=== PATIENT | female | born 1945 | race Hispanic/Latino ===

== ENCOUNTER → 2017-12-26 | Outpatient (CLI) | payer OTHER | END | disposition home or self-care (01) | LOC: OIH 16:08 | PROVIDERS: ATTEND Family Medicine | DX: M47.896 Other spondylosis, lumbar region (principal); S33.140A Subluxation of L4/L5 lumbar vertebra, initial encounter; M48.07 Spinal stenosis, lumbosacral region; X58.XXXA Exposure to other specified factors, initial encounter; Y93.89 Activity, other specified; Y92.89 Other specified places as the place of occurrence of the external cause; Y99.8 Other external cause status | CPT/HCPCS: 72100 ==

== ENCOUNTER → 2018-05-02 | Outpatient (CLI) | payer OTHER | END | disposition home or self-care (01) | LOC: RAH 12:44 | PROVIDERS: ATTEND Family Medicine | DX: M48.062 Spinal stenosis, lumbar region with neurogenic claudication (principal); M54.16 Radiculopathy, lumbar region | CPT/HCPCS: 72148 ==

== ENCOUNTER → 2018-10-23 | Outpatient (CLI) | payer OTHER | END | disposition home or self-care (01) | LOC: RAH 13:12 | PROVIDERS: ATTEND Family Medicine | DX: Z12.31 Encounter for screening mammogram for malignant neoplasm of breast (principal) | CPT/HCPCS: 77067 ==

== ENCOUNTER → 2021-09-28 | Outpatient (CLI) | payer OTHER | END | disposition home or self-care (01) | LOC: RAH 15:47 | PROVIDERS: ATTEND Family Medicine | DX: Z12.31 Encounter for screening mammogram for malignant neoplasm of breast (principal) | CPT/HCPCS: 77067 ==

== ENCOUNTER 2023-07-15 05:20 | Observation (INO) | payer OTHER ==
[~2023-07-15] VITALS: Ht 160 cm; Wt 84.9 kg
[2023-07-15 05:37] LABS: BASOPHILS # (AUTO) 0.02 K/uL (0.00-0.20); BASOPHILS % (AUTO) 0.3 % (0.0-5.0); EOSINOPHILS # (AUTO) 0.29 K/uL (0.00-0.70); EOSINOPHILS % (AUTO) 4.8 % (0.0-8.0); HEMATOCRIT 40.8 % (36-48); IMMATURE GRANULOCYTE ABSOLUTE 0.02 K/uL (0-1); LYMPHOCYTES # (AUTO) 1.3 K/uL (1.0-4.8); LYMPHOCYTES % (AUTO) 21.5 % (21.0-51.0); MEAN CORPUSCULAR HEMOGLOBIN 29.3 pg (27.0-33.0); MEAN CORPUSCULAR HGB CONC 33.1 g/dL (32.0-36.0); MEAN CORPUSCULAR VOLUME 88.7 fL (79-99); MONOCYTES # (AUTO) 0.5 K/uL (0.1-1.0); NEUTROPHILS # (AUTO) 3.9 K/uL (1.8-7.7); NEUTROPHILS % (AUTO) 65.1 % (40.0-77.0); PLATELET COUNT (AUTO) 246 K/uL (130-400)
[2023-07-15 06:01] LABS: ALBUMIN 3.4 g/dL (3.5-5.0); BILIRUBIN,TOTAL 0.4 mg/dL (0.2-1.0); CREATININE 0.8 mg/dL (0.5-1.0); POTASSIUM 3.5 mmol/L (3.5-5.1); TOTAL PROTEIN, SERUM 6.8 g/dL (6.0-8.3)
[2023-07-15 06:11] LABS: INR <= 0.93 (0.85-1.15); PROTHROMBIN TIME 10.8 SEC (9.6-11.6)
[2023-07-15 06:12] LABS: PARTIAL THROMBOPLASTIN TIME 27.4 SEC (26.3-35.5)
[2023-07-15 06:34] LABS: B-TYPE NATRIURETIC PEPTIDE 13 pg/mL (0-100)
[2023-07-15] MEDS: ENOXAPARIN SODIUM 40 MG/0.4 ML SYRINGE SQ ONE (07:27)
[2023-07-15] MEDS: NITROGLYCERIN 1GM OINT 1 INCH/1GM TD ONE (07:28)
[2023-07-15 09:21] LABS: APPEARANCE,URINE CLEAR (CLEAR); BILIRUBIN,URINE NEGATIVE (NEGATIVE); GLUCOSE, URINE (UA) NEGATIVE (NEGATIVE); KETONES,URINE NEGATIVE (NEGATIVE); LEUKOCYTE ESTERASE ,URINE NEGATIVE Leu/uL (NEGATIVE); NITRATE,URINE NEGATIVE (NEGATIVE); OCCULT BLOOD,URINE NEGATIVE (NEGATIVE); PROTEIN,URINE NEGATIVE (NEGATIVE); UROBILINOGEN,URINE 0.2 mg/dL (0.2-1.0)
[2023-07-15 09:23] LABS: ADD UA MICROSCOPIC NO; COLOR,URINE STRAW (YELLOW)
[2023-07-15] MEDS ORDERED: ALUM PO PRN (10:30)
[2023-07-15] MEDS ORDERED: BENZOCAINE/MENTH/CETYLPYRD CL 1 EACH LOZENGE MM PRN (10:30)
[2023-07-15] MEDS ORDERED: DOCUSATE SODIUM 100 MG CAP PO PRN (10:30)
[2023-07-15] MEDS ORDERED: ALPRAZOLAM 0.5 MG TABLET PO PRN (10:30)
[2023-07-15] MEDS ORDERED: DICYCLOMINE HCL PO PRN (10:30)
[2023-07-15] MEDS ORDERED: GUAIFENESIN SUGAR-FREE 100 MG/5 ML UDCUP PO PRN (10:30)
[2023-07-15] MEDS ORDERED: LACTULOSE 20 GM/30 ML UDCUP PO PRN (10:30)
[2023-07-15] MEDS ORDERED: LIDOCAINE HCL 2% PO PRN (10:30)
[2023-07-15] MEDS ORDERED: DIPHENHYDRAMINE HCL 25 MG CAPSULE PO PRN (10:30)
[2023-07-15] MEDS ORDERED: MAG PO PRN (10:30)
[2023-07-15] MEDS ORDERED: ACETAMINOPHEN 325 MG TAB PO PRN ×2 (10:30)
[2023-07-15] MEDS ORDERED: VISCOUS PO PRN (10:30)
[2023-07-15] MEDS ORDERED: SIMETH PO PRN (10:30)
[2023-07-15] MEDS ORDERED: ARTIFICAL TEARS SOL 15 ML OP PRN (10:30)
[2023-07-15] MEDS ORDERED: ONDANSETRON 4MG INJ IV PRN (10:30)
[2023-07-15] MEDS ORDERED: ACETAMINOPHEN 500 MG TABLET PO PRN (10:30)
[2023-07-15] MEDS ORDERED: LOPERAMIDE HCL 2 MG CAP PO PRN (10:30)
[2023-07-15] MEDS ORDERED: ZOLPIDEM TARTRATE 5 MG TAB PO PRN (10:30)
[2023-07-15] MEDS ORDERED: POLYETHYLENE GLYCOL 3350 17 GM POWD.PACK PO PRN (10:30)
[2023-07-15] MEDS ORDERED: DiphenhydrAMINE HCL 50 MG/ML VIAL IV PRN (10:30)
[2023-07-15] MEDS ORDERED: GUAIFENESIN-DM 200/20 MG 10 ML PO PRN (10:30)
[2023-07-15] MEDS ORDERED: NITROGLYCERIN 0.4 MG SL TAB SL PRN (10:30)
[2023-07-15] MEDS ORDERED: MAG/ALUM/SIMETH 30 ML UDCUP PO PRN (10:30)
[2023-07-15 12:00] VITALS: O2SAT 98
[2023-07-15 12:15] VITALS: BP 126/57; PULSE 58; RESP 18
[2023-07-15 16:00] VITALS: BP 140/74; PULSE 61; RESP 18
[2023-07-15] MEDS ORDERED: LOSA100T59 PO (17:12)
[2023-07-15] MEDS ORDERED: METF-446 PO (17:12)
[2023-07-15] MEDS ORDERED: AMLO-257 PO (17:36)
[2023-07-15 20:00] VITALS: BP 143/71; PULSE 69; RESP 19; O2SAT 96
[2023-07-15] MEDS: FAMOTIDINE 20MG TAB PO SCH (20:05)
[2023-07-15] MEDS: ATORVASTATIN 40 MG TABLET PO SCH (20:05)
[2023-07-15] MEDS ORDERED: FAMOTIDINE 20MG VIAL IV PRN (21:00)
[2023-07-15] MEDS: INSULIN HUMULIN R 100 UNIT/ML 3ML SQ SCH (22:33)
[2023-07-15] MEDS ORDERED: HYDRALAZINE 20MG/ML VIAL IV PRN (23:30)
[2023-07-16] VITALS: BP 149/76; PULSE 65; RESP 19
[2023-07-16 04:00] VITALS: BP 142/66; PULSE 66; RESP 19
[2023-07-16 04:03] LABS: BASOPHILS # (AUTO) 0.02 K/uL (0.00-0.20); BASOPHILS % (AUTO) 0.4 % (0.0-5.0); EOSINOPHILS % (AUTO) 4.4 % (0.0-8.0); HEMATOCRIT 37.9 % (36-48); IMMATURE GRANULOCYTE ABSOLUTE 0.01 K/uL (0-1); LYMPHOCYTES # (AUTO) 0.8 K/uL (1.0-4.8); LYMPHOCYTES % (AUTO) 17.4 % (21.0-51.0); MEAN CORPUSCULAR HEMOGLOBIN 28.7 pg (27.0-33.0); MEAN CORPUSCULAR VOLUME 86.9 fL (79-99); MONOCYTES # (AUTO) 0.4 K/uL (0.1-1.0); MONOCYTES % (AUTO) 9.5 % (3.0-13.0); NEUTROPHILS # (AUTO) 3.1 K/uL (1.8-7.7); NEUTROPHILS % (AUTO) 68.1 % (40.0-77.0); PLATELET COUNT (AUTO) 224 K/uL (130-400); RED BLOOD CELL COUNT(AUTO) 4.36 MIL/uL (4.00-5.50); RED CELL DISTRIBUTION WIDTH 13.1 % (11.0-15.5); WHITE BLOOD COUNT (AUTO) 4.5 K/uL (4.8-10.8)
[2023-07-16 04:33] LABS: CREATININE 0.8 mg/dL (0.5-1.0); POTASSIUM 3.8 mmol/L (3.5-5.1)
[2023-07-16 08:00] VITALS: BP 130/60; PULSE 64; RESP 17; O2SAT 95
[2023-07-16] MEDS: ASPIRIN 81 MG EC TAB PO SCH (09:17)
[2023-07-16] MEDS: AMLODIPINE 5 MG TAB PO SCH (09:17)
[2023-07-16] MEDS: LOSARTAN 100 MG TABLET PO SCH (09:17)
[2023-07-16] MEDS: CLOPIDOGREL 75MG TAB PO SCH (09:17)
[2023-07-16] MEDS ORDERED: ATOR40TA69 PO (09:24)
[2023-07-16] MEDS ORDERED: AEC81 PO (09:24)
[2023-07-16 12:00] VITALS: BP 148/72; PULSE 68; RESP 18
== END 2023-07-16 12:20 | disposition home or self-care (01) ==
LOC: EDH 05:20 → EDHIP 10:01 → 4BH 11:35
PROVIDERS: ADMIT Internal Medicine Pulmonary Disease; ATTEND Internal Medicine Pulmonary Disease
DX: R07.89 Other chest pain (principal); I10 Essential (primary) hypertension; E78.5 Hyperlipidemia, unspecified; J44.9 Chronic obstructive pulmonary disease, unspecified; E11.65 Type 2 diabetes mellitus with hyperglycemia; I20.9 Angina pectoris, unspecified; E83.51 Hypocalcemia; E88.09 Other disorders of plasma-protein metabolism, not elsewhere classified; Z88.6 Allergy status to analgesic agent; Z91.02 Food additives allergy status; Z88.8 Allergy status to other drugs, medicaments and biological substances; Z90.710 Acquired absence of both cervix and uterus; Z90.49 Acquired absence of other specified parts of digestive tract; Z87.891 Personal history of nicotine dependence
CPT/HCPCS: 96372; 99285; 84484 ×4; 80053; 83880; 85025 ×2; 85610; 85730; 82948 ×3; 81003; 36415 ×2; 71045; 93306; 93356; 76376; 93005 ×2; 80048; G0378 ×25; J1650

== ENCOUNTER → 2023-08-06 | Outpatient (CLI) | payer OTHER ==
[~2023-08-06] MED LIST: AEC81 PO; AMLO-257 PO; ATOR40TA69 PO; LOSA100T59 PO; METF-446 PO
[2023-08-06] MEDS: REGADENOSON 0.4 MG/5 ML PF SYG IVP SCH (14:51)
== END | disposition home or self-care (01) ==
LOC: RAH 08:39
PROVIDERS: ATTEND Family Medicine
DX: I45.10 Unspecified right bundle-branch block (principal); I20.9 Angina pectoris, unspecified; I10 Essential (primary) hypertension
CPT/HCPCS: 78452; 96374; 93017; J2785; A9500 ×2

== ENCOUNTER → 2023-09-12 | Outpatient (CLI) | payer OTHER | END | disposition home or self-care (01) | LOC: RAH 15:51 | PROVIDERS: ATTEND Family Medicine | DX: Z12.31 Encounter for screening mammogram for malignant neoplasm of breast (principal) | CPT/HCPCS: 77067 ==

== ENCOUNTER → 2024-06-03 | Outpatient (CLI) | payer OTHER | END | disposition home or self-care (01) | LOC: SHCH 10:10 | PROVIDERS: ATTEND Student in an Organized Health Care Education/Training Program | DX: I08.0 Rheumatic disorders of both mitral and aortic valves (principal); R07.9 Chest pain, unspecified | CPT/HCPCS: 93306 ==